=== PATIENT | male | born 1960 | race African-American/Black ===

== ENCOUNTER → 2017-09-29 | Emergency (ER) | payer OTHER ==
[~2017-09-29] VITALS: Ht 190.5 cm; Wt 111.1 kg
[~2017-09-29] MED LIST: AMLODIPINE BESY10 MG PO; ASPIR 8181 MG PO; Bacitracin Oint UD TOPIC ONE; FAMOTIDINE20 MG PO; IBUPROFEN600 MG ORAL; NORCO 5-325 TA1 EACH PO; RANITIDINE HCL150 MG ORAL
[2017-09-29 16:07] VITALS: BP 173/90
--- NOTE | 2017-09-29 16:14 | Emergency Room Report ---
History of Present Illness General Chief Complaint: Multiple Trauma/Fall Source: Patient Present Illness HPI Patient undressing after 4 mile walk and had foot caught in pants. Fell and hit R head on dresser. No LOC. + swelling and abrasion R face. No nausea. Pain in head 5/10, localized, aching. No blood thinners. Neck with slight stiffness now. No other extremity tenderness. No other somatic complaints. 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 Reviewed Nursing Documentation: PMH: Agreed, PSxH: Agreed Nursing Documentation-PMH Past Medical History: No Stated History Hx Hypertension: Yes Review of Systems All Other Systems: negative except mentioned in HPI Physical Exam Vital Signs Date Time Temp Pulse Resp B/P (MAP) Pulse Ox O2 Delivery O2 Flow Rate FiO2 09/29/17 15:59 97.9 100 20 173/90 96 Room Air 97.9 Sp02 EP Interpretation: reviewed, normal General Appearance: well appearing, no apparent distress Head: other - abrasion/hematoma R face Eyes: bilateral eye normal inspection, bilateral eye PERRL, bilateral eye EOMI ENT: hearing grossly normal, normal voice Neck: full range of motion, supple, no bony tend Respiratory: chest non-tender, lungs clear, no respiratory distress, speaking full sentences Cardiovascular #1: regular rate, rhythm Cardiovascular #2: 2+ radial (R) Gastrointestinal: normal inspection, non tender, soft Musculoskeletal: back normal, digits/nails normal, gait/station normal, normal range of motion, no calf tenderness, pelvis stable Neurologic: alert, oriented x3, 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 Ddx: contusion, hematoma, TBI , concussion, abrasion, neck strain. Based on NEXUS, no imaging indicated at this time. Analgesic given. Wound care. Discussed need for someone to wake. Improved Patient stable for outpatient observation and treatment. Last Vital Signs Date Time Temp Pulse Resp B/P (MAP) Pulse Ox O2 Delivery O2 Flow Rate FiO2 09/29/17 16:25 97.9 77 20 173/90 96 Room Air 208.2 Status: improved Disposition: HOME, SELF-CARE Condition: Improved Scripts Ibuprofen* (MOTRIN*) 600 Mg Tablet 600 MG ORAL Q6H Y for For Pain, #20 TAB Prov: Raul Minor M.D. 09/29/17 Raul Minor M.D. Sep 29, 2017 16:14
== END | disposition home or self-care (01) ==
LOC: EMR 16:20
DX: S00.81XA Abrasion of other part of head, initial encounter (principal); S00.83XA Contusion of other part of head, initial encounter; W19.XXXA Unspecified fall, initial encounter; Y93.01 Activity, walking, marching and hiking; Y92.89 Other specified places as the place of occurrence of the external cause; I10 Essential (primary) hypertension
CPT/HCPCS: 99283